=== PATIENT | male | born 1990 | race American Indian/Alaskan Native ===

== ENCOUNTER 2018-12-14 22:14 | Emergency (ER) | payer SELFPAY ==
--- NOTE | 2018-12-14 23:05 | Emergency Department Report ---
ED Seizure HPI - General Stated Complaint: SEIZURE Time Seen by Provider: 12/14/18 22:58 Source: patient, family Mode of arrival: Stretcher Limitations: No Limitations - History of Present Illness Initial Comments: Patient is a 28-year-old male that presents to emergency with seizure. Patient has a known seizure history. Patient is taking his Keppra however patient is mostly taken 750 mg by mouth twice a day but patient is taking 500 mg once a day due to not having a prescription for Keppra 750 mg. Patient states his last seizure was October 2018. Patient states his seizures were better when he was taking the correct dose of Keppra. Patient denies head trauma. Patient states he was laying on the couch when he went into a seizure. Patient did have a post ictal stage however patient is now answering questions appropriately. Patient was brought in by EMS. Report received from EMS. Patient denies chest pain. Patient denies blurry vision. Patient denies headache. Patient denies dizziness. Patient denies shortness of breath. MD Complaint: seizure -: Sudden Description of Episode: tonic-clonic movement -: second(s) Witnessed:: Yes Trauma: No Seizure History: known seizure disorder, history of non-compliance Place: home Possible Precipitating Event: medication Associated Symptoms: denies other symptoms. denies: chest pain, confusion, cough, diaphoresis, fever/chills, loss of appetite, malaise, rash, shortness of breath, syncope, weakness, tongue injury, shoulder dislocation - Related Data Previous Rx's Medication Instructions Recorded Last Taken Type levETIRAcetam [Keppra] 750 mg PO BID 30 Days #60 tablet 12/15/18 Unknown Rx Allergies Allergy/AdvReac Type Severity Reaction Status Date / Time No Known Allergies Allergy Unverified 12/14/18 23:03 ED Review of Systems ROS: Stated complaint: SEIZURE Other details as noted in HPI Constitutional: denies: chills, fever Eyes: denies: eye pain, eye discharge, vision change ENT: denies: ear pain, throat pain Respiratory: denies: cough, shortness of breath, wheezing Cardiovascular: denies: chest pain, palpitations Endocrine: no symptoms reported Gastrointestinal: denies: abdominal pain, nausea, diarrhea Genitourinary: denies: urgency, dysuria Musculoskeletal: denies: back pain, joint swelling, arthralgia Skin: denies: rash, lesions Neurological: denies: headache, weakness, paresthesias Psychiatric: denies: anxiety, depression Hematological/Lymphatic: denies: easy bleeding, easy bruising ED Past Medical Hx - Past Medical History Previous Medical History?: Yes Hx Seizures: Yes - Surgical History Past Surgical History?: No - Family History Family history: no significant - Social History Smoking Status: Never Smoker Substance Use Type: None - Medications Home Medications: Home Medications Medication Instructions Recorded Confirmed Last Taken Type levETIRAcetam [Keppra] 750 mg PO BID 30 Days #60 tablet 12/15/18 Unknown Rx ED Physical Exam - General General appearance: alert, in no apparent distress - Head Head exam: Present: atraumatic, normocephalic - Eye Eye exam: Present: normal appearance, PERRL Pupils: Present: normal accommodation - ENT ENT exam: Present: mucous membranes moist - Neck Neck exam: Present: normal inspection - Respiratory Respiratory exam: Present: normal lung sounds bilaterally. Absent: respiratory distress - Cardiovascular Cardiovascular Exam: Present: regular rate, normal rhythm. Absent: systolic murmur, diastolic murmur, rubs, gallop - GI/Abdominal GI/Abdominal exam: Present: soft, normal bowel sounds - Rectal Rectal exam: Present: deferred - Extremities Exam Extremities exam: Present: normal inspection - Back Exam Back exam: Present: normal inspection - Neurological Exam Neurological exam: Present: alert, oriented X3, CN II-XII intact, normal gait. Absent: motor sensory deficit - Psychiatric Psychiatric exam: Present: normal affect, normal mood - Skin Skin exam: Present: warm, dry, intact, normal color. Absent: rash ED Course Vital Signs 12/14/18 12/14/18 12/14/18 22:40 22:45 22:55 Temperature 97.4 F L Pulse Rate 70 88 Respiratory 18 20 Rate Blood Pressure 143/91 136/80 O2 Sat by Pulse 96 98 99 Oximetry 12/14/18 12/14/18 12/14/18 23:00 23:01 23:16 Temperature Pulse Rate 75 77 Respiratory 14 20 12 Rate Blood Pressure 143/91 215/124 O2 Sat by Pulse 99 99 99 Oximetry 12/14/18 12/14/18 12/15/18 23:30 23:46 00:00 Temperature Pulse Rate 72 71 71 Respiratory 15 21 18 Rate Blood Pressure 215/124 151/74 140/74 O2 Sat by Pulse 99 99 99 Oximetry - Reevaluation(s) Reevaluation #1: Discussed all results with patient. Patient will be given a prescription for Keppra 750 mg by mouth twice a day. pt Given discharge instructions. Patient voiced understanding of all discharge instructions. Patient is stable for discharge. Patient will be discharged home. Patient received Keppra bolus 12/15/18 00:08 ED Medical Decision Making - Lab Data Result diagrams: 12/14/18 23:31 12/14/18 23:31 - EKG Data -: EKG Interpreted by Me EKG shows normal: sinus rhythm, axis, intervals, QRS complexes, ST-T waves Rate: normal - Medical Decision Making Patient is a 28-year-old male that presents emergency with seizure like activity. Patient has a history of seizure. Patient not taking his p rescriptions as prescribed due to not having medications. Patient will be given a refill of his current dose of Keppra. Patient's labs unremarkable. Patient's EKG normal. Patient we discharged home. Critical care attestation.: If time is entered above; I have spent that time in minutes in the direct care of this critically ill patient, excluding procedure time. ED Disposition Clinical Impression: Seizure, Noncompliance Disposition: DC-01 TO HOME OR SELFCARE Is pt being admited?: No Does the pt Need Aspirin: No Condition: Stable Instructions: Epilepsy (ED), Recurrent Seizures Adult (ED) Additional Instructions: Follow-up with primary care in 2-3 days. Patient to follow up with neurologist in 2-3 days. Patient take Keppra as directed. Patient increase water. Patient to rest. Patient to avoid driving. Prescriptions: levETIRAcetam [Keppra] 750 mg PO BID 30 Days #60 tablet Referrals: NARA RAMOS [Primary Care Provider] - 2-3 Days Time of Disposition: 00:28
[2018-12-14] MEDS ORDERED: KEPPRA 1,000 MG/NS 0.75% 100ML 1,000 MG/100 ML BAG IV ONE (23:24)
[2018-12-14 23:38] LABS: Hematocrit 37.9 % (35.5-45.6); Hemoglobin 12.9 gm/dl (11.8-15.2); Mean Corpuscular HGB Conc 34 % (32-34); Mean Corpuscular Volume 86 fl (84-94); Platelet Count 258 K/mm3 (140-440); Red Blood Count 4.39 M/mm3 (3.65-5.03); Red Cell Distribution Width 14.8 % (13.2-15.2)
[2018-12-15] LABS: Alanine Aminotransferase 19 units/L (7-56); Albumin 3.8 g/dL (3.9-5); BUN/Creatinine Ratio 14; Blood Urea Nitrogen 11 mg/dL (9-20); Calcium 8.7 mg/dL (8.4-10.2); Hemolysis Index 5
[2018-12-15 00:14] VITALS: BP 140/74
== END 2018-12-15 00:49 | disposition home or self-care (01) ==
LOC: ED 22:14
DX: G40.909 Epilepsy, unspecified, not intractable, without status epilepticus (principal)
CPT/HCPCS: 36415; 80053; 85027; 93005; 93010; 96374; 99284; J1953

== ENCOUNTER 2019-01-04 21:21 | Emergency (ER) | payer SELFPAY ==
[2019-01-04] MEDS ORDERED: KEPPRA 1,000 MG/NS 0.75% 100ML 1,000 MG/100 ML BAG IV ONE (21:34)
--- NOTE | 2019-01-04 21:38 | Emergency Department Report ---
HPI - General Chief Complaint: Seizure Time Seen by Provider: 01/04/19 21:26 - HPI HPI: Room 2 The patient is a 28-year-old male presenting with chief complaint of seizure. Patient has a history of epilepsy but has been taking a prescription of Keppra t hat is over 1-year-old. Tonight the patient had a seizure and EMS was called. Per EMS the patient had a second seizure while with them was administered Ativan 2 mg IV prior to arrival. In the ED the patient is postictal but speaks. Patient complains of just feeling tired Location: [facility] Duration: [See above] Quality: [See above] Severity: Moderate Modifying factors: [see above] Context: [see above] Mode of transportation: [not driving] ED Past Medical Hx - Past Medical History Previous Medical History?: Yes Hx CVA: Yes (minimal left-sided weakness) Hx Seizures: Yes Additional medical history: TIA- 2013 - Surgical History Past Surgical History?: No - Family History Family history: no significant - Social History Smoking Status: Never Smoker Substance Use Type: None (denies illicit drug use) - Medications Home Medications: Home Medications Medication Instructions Recorded Confirmed Last Taken Type levETIRAcetam [Keppra] 750 mg PO BID #60 tablet 01/05/19 Unknown Rx ED Review of Systems ROS: Stated complaint: SEIZURE Other details as noted in HPI Constitutional: no symptoms reported Eyes: denies: eye pain ENT: denies: throat pain Respiratory: no symptoms reported Cardiovascular: denies: chest pain Endocrine: no symptoms reported Gastrointestinal: denies: abdominal pain Genitourinary: denies: dysuria Musculoskeletal: denies: back pain Neurological: other (seizure). denies: headache Physical Exam - Physical Exam Vital Signs: Vital Signs 01/04/19 01/04/19 21:26 21:31 Temperature 98.0 F Pulse Rate 89 89 Respiratory 17 16 Rate Blood Pressure 148/75 [Right] O2 Sat by Pulse 97 98 Oximetry Physical Exam: GENERAL: The patient is well-developed well-nourished male sleeping on stretcher not appear to be in acute distress. [] HEENT: Normocephalic. Atraumatic. Extraocular motions are intact. Patient has moist mucous membranes. NECK: Supple. No meningitic signs are noted. There is no adenopathy noted. CHEST/LUNGS: Clear to auscultation. There is no respiratory distress noted. HEART/CARDIOVASCULAR: Regular. There is no tachycardia. There is no gallop rub or murmur. ABDOMEN: Abdomen is soft, nontender. Patient has normal bowel sounds. There is no abdominal distention. SKIN: There is no rash. There is no edema. There is no diaphoresis. NEURO: The patient is sluggish but oriented. The patient is cooperative. The patient has no focal neurologic deficits. The patient has normal speech. Cranial nerves II through XII grossly intact, no drift MUSCULOSKELETAL: There is no evidence of acute injury. ED Course Vital Signs 01/04/19 01/04/19 21:26 21:31 Temperature 98.0 F Pulse Rate 89 89 Respiratory 17 16 Rate Blood Pressure 148/75 [Right] O2 Sat by Pulse 97 98 Oximetry - Reevaluation(s) Reevaluation #1: 01/04/19 22:32 Patient remains groggy. When patient is more awake will be able to discharge Reevaluation #2: 01/05/19 00:13 Patient awake now states he feels good and is ready to go home. ED Medical Decision Making - Lab Data Result diagrams: 01/04/19 21:37 01/04/19 21:37 Laboratory Tests 01/04/19 01/04/19 01/04/19 21:37 21:37 21:37 WBC 8.1 RBC 4.50 Hgb 13.1 Hct 38.6 MCV 86 MCH 29 MCHC 34 RDW 14.2 Plt Count 292 Lymph % (Auto) 20.4 [place] % (Auto) 7.2 Eos % (Auto) 1.0 Baso % (Auto) 0.9 Lymph # 1.7 [place] # 0.6 Eos # 0.1 Baso # 0.1 Seg Neutrophils % 70.5 H Seg Neutrophils # 5.7 Sodium 142 Potassium 3.9 Chloride 105.8 Carbon Dioxide 23 Anion Gap 17 BUN 9 Creatinine 1.0 Estimated GFR > 60 BUN/Creatinine Ratio 9 Glucose 87 Calcium 8.9 Magnesium 2.00 - Differential Diagnosis seizure Critical care attestation.: If time is entered above; I have spent that time in minutes in the direct care of this critically ill patient, excluding procedure time. ED Disposition Clinical Impression: Seizure Disposition: DC-01 TO HOME OR SELFCARE Is pt being admited?: No Does the pt Need Aspirin: No Condition: Stable Instructions: Epilepsy (ED) Additional Instructions: Return to the emergency department immediately should you develop worsening s ymptoms, fever, inability to tolerate food or liquid or any other concerns. Prescriptions: levETIRAcetam [Keppra] 750 mg PO BID #60 tablet Referrals: ZOHRA JEFF MD [Staff Physician] - 3-5 Days (Dr. Jeff is a neurologist. Please follow up with him for further evaluation) Time of Disposition: 00:15
[2019-01-04 21:54] LABS: Basophils # (Auto) 0.1 K/mm3 (0.0-0.1); Basophils % (Auto) 0.9 % (0.0-1.8); Eosinophils # (Auto) 0.1 K/mm3 (0.0-0.4); Hematocrit 38.6 % (35.5-45.6); Hemoglobin 13.1 gm/dl (11.8-15.2); Lymphocytes # (Auto) 1.7 K/mm3 (1.2-5.4); Lymphocytes % (Auto) 20.4 % (13.4-35.0); Mean Corpuscular HGB Conc 34 % (32-34); Mean Corpuscular Volume 86 fl (84-94); Monocytes # (Auto) 0.6 K/mm3 (0.0-0.8); Monocytes % (Auto) 7.2 % (0.0-7.3); Platelet Count 292 K/mm3 (140-440); Red Cell Distribution Width 14.2 % (13.2-15.2)
[2019-01-04 22:13] LABS: BUN/Creatinine Ratio 9; Blood Urea Nitrogen 9 mg/dL (9-20); Calcium 8.9 mg/dL (8.4-10.2); Hemolysis Index 8
[2019-01-05 00:13] VITALS: BP 133/73
== END 2019-01-05 00:34 | disposition home or self-care (01) ==
LOC: ED 21:21
DX: R56.9 Unspecified convulsions (principal); Z86.73 Personal history of transient ischemic attack (TIA), and cerebral infarction without residual deficits
CPT/HCPCS: 36415; 80048; 83735; 85025; 96365; 99284; J1953

== ENCOUNTER 2019-01-06 00:59 | Emergency (ER) | payer OTHER ==
[2019-01-06] MEDS ORDERED: ACTIDOSE-AQUA PO ONE (01:16)
[2019-01-06 01:48] LABS: Basophils # (Auto) 0.1 K/mm3 (0.0-0.1); Basophils % (Auto) 0.8 % (0.0-1.8); Eosinophils # (Auto) 0.1 K/mm3 (0.0-0.4); Eosinophils % (Auto) 1.7 % (0.0-4.3); Hematocrit 38.6 % (35.5-45.6); Hemoglobin 13.3 gm/dl (11.8-15.2); Lymphocytes # (Auto) 1.8 K/mm3 (1.2-5.4); Lymphocytes % (Auto) 21.6 % (13.4-35.0); Mean Corpuscular HGB Conc 34 % (32-34); Mean Corpuscular Hemoglobin 29 pg (28-32); Mean Corpuscular Volume 86 fl (84-94); Monocytes # (Auto) 0.5 K/mm3 (0.0-0.8); Monocytes % (Auto) 5.9 % (0.0-7.3); Platelet Count 272 K/mm3 (140-440); Red Blood Count 4.52 M/mm3 (3.65-5.03); Red Cell Distribution Width 14.2 % (13.2-15.2)
[2019-01-06 02:07] LABS: Alanine Aminotransferase 21 units/L (7-56); Albumin 3.9 g/dL (3.9-5); BUN/Creatinine Ratio 10; Blood Urea Nitrogen 8 mg/dL (9-20); Calcium 8.7 mg/dL (8.4-10.2); Hemolysis Index 3
--- NOTE | 2019-01-06 02:53 | Emergency Department Report ---
ED Psych HPI - General Chief Complaint: Overdose Stated Complaint: SUICIDAL IDEATIONS Time Seen by Provider: 01/06/19 01:14 Source: EMS Mode of arrival: Stretcher - History of Present Illness Initial Comments: Patient is a 28-year-old male past medical history of seizures who attempted suicide tonight. Patient states he's been feeling depressed and he was actually playing with his gun today and was having thoughts of shooting himself. Patient decided not to do this but did take a handful of his Keppra followed by additional handful. Patient states that he thinks he took approximately 20 pills approximately an hour and a half before his arrival here. Patient states he has mild sleepiness but denies any nausea vomiting headache seizures. MD Complaint: suicidal ideation, feels depressed - Related Data Previous Rx's Medication Instructions Recorded Last Taken Type levETIRAcetam [Keppra] 750 mg PO BID #60 tablet 01/05/19 Unknown Rx Allergies Allergy/AdvReac Type Severity Reaction Status Date / Time No Known Allergies Allergy Unverified 12/14/18 23:03 ED Review of Systems ROS: Stated complaint: SUICIDAL IDEATIONS Other details as noted in HPI Comment: All other systems reviewed and negative ED Past Medical Hx - Past Medical History Hx CVA: Yes (minimal left-sided weakness 2012) Hx Seizures: Yes Additional medical history: TIA- 2012 - Social History Smoking Status: Unknown if ever smoked - Medications Home Medications: Home Medications Medication Instructions Recorded Confirmed Last Taken Type levETIRAcetam [Keppra] 750 mg PO BID #60 tablet 01/05/19 01/07/19 Unknown Rx ED Physical Exam - General Limitations: No Limitations General appearance: alert, in no apparent distress - Head Head exam: Present: atraumatic, normocephalic - Eye Eye exam: Present: normal appearance - ENT ENT exam: Present: mucous membranes moist - Neck Neck exam: Present: normal inspection - Respiratory Respiratory exam: Present: normal lung sounds bilaterally. Absent: respiratory distress, wheezes, rales, rhonchi - Cardiovascular Cardiovascular Exam: Present: regular rate, normal rhythm. Absent: systolic murmur, diastolic murmur, rubs, gallop - GI/Abdominal GI/Abdominal exam: Present: soft, normal bowel sounds. Absent: distended, tenderness, guarding, rebound, rigid - Rectal Rectal exam: Present: deferred - Extremities Exam Extremities exam: Present: normal inspection - Back Exam Back exam: Present: normal inspection - Neurological Exam Neurological exam: Present: alert, oriented X3 - Psychiatric Psychiatric exam: Present: normal affect, normal mood - Skin Skin exam: Present: warm, dry, intact, normal color. Absent: rash ED Course Vital Signs 01/06/19 01/06/19 01/06/19 01:04 01:27 02:15 Temperature 97.3 F L Pulse Rate 78 75 Respiratory 18 20 18 Rate Blood Pressure 160/112 134/90 [Left] O2 Sat by Pulse 97 98 100 Oximetry 01/06/19 01/06/19 01/06/19 03:01 08:00 14:56 Temperature 97.7 F 97.4 F L 97.3 F L Pulse Rate 82 79 72 Respiratory 18 18 18 Rate Blood Pressure 112/72 112/72 107/65 [Left] O2 Sat by Pulse 99 100 99 Oximetry 01/06/19 01/06/19 01/07/19 19:30 20:00 02:00 Temperature 97.9 F 97.6 F Pulse Rate 69 69 Respiratory 18 18 18 Rate Blood Pressure 133/88 145/95 [Left] O2 Sat by Pulse 99 99 100 Oximetry 01/07/19 01/07/19 01/07/19 08:00 14:00 20:00 Temperature 98.9 F 97.8 F 98 F Pulse Rate 66 99 H 72 Respiratory 18 13 18 Rate Blood Pressure 105/60 142/88 124/67 [Left] O2 Sat by Pulse 100 99 99 Oximetry 01/08/19 01/08/19 01/08/19 02:05 02:30 03:30 Temperature 97.7 F Pulse Rate 84 Respiratory 20 18 18 Rate Blood Pressure 141/84 [Left] O2 Sat by Pulse 98 Oximetry 01/08/19 09:12 Temperature 97.9 F Pulse Rate 63 Respiratory 18 Rate Blood Pressure 133/77 [Left] O2 Sat by Pulse 100 Oximetry - Reevaluation(s) Reevaluation #1: 01/08/19 12:03 Patient was seen by psychiatry and has had his temperature to be rescinded. Patient is calm and cooperative. Patient is remorseful for the suicide attempt several days ago. Patient does have collateral help at home. Patient's cont racted for safety and can be discharged home at this time. ED Medical Decision Making - Lab Data Result diagrams: 01/06/19 01:21 01/06/19 01:21 Labs 01/06/19 01/06/19 01/06/19 01:21 01:21 01:21 WBC 8.4 RBC 4.52 Hgb 13.3 Hct 38.6 MCV 86 MCH 29 MCHC 34 RDW 14.2 Plt Count 272 Lymph % (Auto) 21.6 [place] % (Auto) 5.9 Eos % (Auto) 1.7 Baso % (Auto) 0.8 Lymph # 1.8 [place] # 0.5 Eos # 0.1 Baso # 0.1 Seg Neutrophils % 70.0 Seg Neutrophils # 5.9 Sodium 137 Potassium 3.6 Chloride 100.6 Carbon Dioxide 25 Anion Gap 15 BUN 8 L Creatinine 0.8 Estimated GFR > 60 BUN/Creatinine Ratio 10 Glucose 102 H Calcium 8.7 Total Bilirubin 0.30 AST 15 ALT 21 Alkaline Phosphatase 77 Total Protein 7.1 Albumin 3.9 Albumin/Globulin Ratio 1.2 Salicylates < 0.3 L Acetaminophen Plasma/Serum Alcohol 01/06/19 01/06/19 01:21 01:21 WBC RBC Hgb Hct MCV MCH MCHC RDW Plt Count Lymph % (Auto) [place] % (Auto) Eos % (Auto) Baso % (Auto) Lymph # [place] # Eos # Baso # Seg Neutrophils % Seg Neutrophils # Sodium Potassium Chloride Carbon Dioxide Anion Gap BUN Creatinine Estimated GFR BUN/Creatinine Ratio Glucose Calcium Total Bilirubin AST ALT Alkaline Phosphatase Total Protein Albumin Albumin/Globulin Ratio Salicylates Acetaminophen < 5.0 L Plasma/Serum Alcohol < 0.01 - Medical Decision Making [facility] contacted and they state that the patient should be monitored for approximately 6 hours for respiratory distress. Patient will be cleared after that. Critical care attestation.: If time is entered above; I have spent that time in minutes in the direct care of this critically ill patient, excluding procedure time. ED Disposition Clinical Impression: Suicidal ideation Overdose Qualifiers: Encounter type: initial encounter Injury intent: intentional self-harm Qualified Code(s): T50.902A - Poisoning by unspecified drugs, medicaments and biological substances, intentional self-harm, initial encounter Disposition: DC-01 TO HOME OR SELFCARE Is pt being admited?: No Does the pt Need Aspirin: No Condition: Stable Referrals: OTTO BENEDICT MD [Primary Care Provider] - 3-5 Days Forms: Accompanied Note Time of Disposition: 12:05
[2019-01-06 04:20] LABS: Bacteria,Urine 1+ /HPF (Negative); Bilirubin,Urine NEG (Negative); Blood,Urine NEG (Negative); Color,Urine Straw (Yellow); Mucus,Urine FEW /HPF; Protein,Urine <15 mg/dL mg/dL (Negative); RBC,Urine < 1.0 /HPF (0.0-6.0); Urobilinogen,Urine < 2.0 mg/dL (<2.0); WBC,Urine < 1.0 /HPF (0.0-6.0)
[2019-01-06 04:45] LABS: Amphetamine Screen,Urine PRESUMPTIVE NEGATIVE; Benzodiazepines Screen,Urine PRESUMPTIVE NEGATIVE; Cannabinoid Screen,Urine PRESUMPTIVE NEGATIVE; Cocaine Screen,Urine PRESUMPTIVE NEGATIVE; Methadone Screen,Urine PRESUMPTIVE NEGATIVE; Opiate Screen,Urine PRESUMPTIVE NEGATIVE
--- NOTE | 2019-01-06 14:14 | Consultation ---
History of Present Illness - Reason for Consult Consult date: 01/06/19 Reason for consult: Mental Health Evaluationq Requesting physician: RODOLFO WELSH - Chief Complaint Chief complaint: "I wanted to " - History of Present Psychiatric Illness 28-year-old male past medical history of seizures who presented to ER for a suicide attempt. Today the patient is calm and cooperative during the ass essment. He stated that he had a argument with his girlfriend. He stated that he felt sad and decided to overdose on Keppra to kill himself per the patient. He denies any previous suicide attempts when asked. He stated that life have been hard most recently. He denies SI/HI's and AVH's. He denies erratic sleep and a poor appetite. He denies recreational drug use and alcohol consumption (etoh). Medications and Allergies Allergies Allergy/AdvReac Type Severity Reaction Status Date / Time No Known Allergies Allergy Unverified 12/14/18 23:03 Home Medications Medication Instructions Recorded Confirmed Last Taken Type levETIRAcetam [Keppra] 750 mg PO BID #60 tablet 01/05/19 Unknown Rx Past psychiatric history - Past Medical History Past Medical History: seizures Past Surgical History: No surgical history - past Psychiatric treatment and history psychiatric treatment history: Denies a psy hs. fam psy of mood do's. - Social History Social history: other (Reside with his girlfriend) Mental Status Exam - Vital signs Last Vital Signs Temp 97.4 F L 01/06/19 08:00 Pulse 79 01/06/19 08:00 Resp 18 01/06/19 08:00 BP 112/72 01/06/19 08:00 Pulse Ox 100 01/06/19 08:00 - Exam Narrative exam: MSE: Appearance: calm, cooperative Behavior: regular eye contact Speech: regular rate and tone Mood: "okay" Affect: congruent to mood Thought Process: linear Thought Content: denies SI/HI's and AVH's Motor Activity: sitting up in bed Cognition: A/O x3 Insight: fair Judgment: variable Results Result Diagrams: 01/06/19 01:21 01/06/19 01:21 Abnormal lab results 01/06/19 01/06/19 01/06/19 Range/Units 01:21 01:21 01:21 BUN 8 L (9-20) mg/dL Glucose 102 H (75-100) mg/dL Salicylates < 0.3 L (2.8-20.0) mg/dL Acetaminophen < 5.0 L (10.0-30.0) ug/mL All other labs normal. Assessment and Plan Assessment and plan: Impression: MDD, Single Episode. Today the patient is calm and cooperative during the assessment. DDx: R/O Bipolar DO Recommendation/Plan: Continue 1013. Discuss risk/benefits of antidepressants, the patient prefer talk therapy at this time. Dspo: The patient was referred to inpatient psy services. Staffed with Dr Azucena Abad.
--- NOTE | 2019-01-07 14:25 | Progress Note ---
Subjective - Reason for Consult Consult date: 01/07/19 Reason for consult: Psychiatric Follow Evaluation - Chief Complaint Chief complaint: "I feel good" Patient is a 28-year-old male who presented to ER for a suicide attempt. Patient has a past medical history of seizures. Today the patient is calm and cooperative during the assessment. He stated that he had a argument with his girlfriend which triggered his suicide attempt. He verbalizes " I had a moment. I recently transitioned here from [place] and it has been stressful." He reports appropriate sleep and appetite. He denies SI/HI's, A/VH's, and delusions. Mental Status Exam - Vital signs Last Vital Signs Temp 98.9 F 01/07/19 08:00 Pulse 66 01/07/19 08:00 Resp 18 01/07/19 08:00 BP 105/60 01/07/19 08:00 Pulse Ox 100 01/07/19 08:00 - Exam Narrative exam: Mental Status Exam Appearance: calm, cooperative Behavior: regular eye contact Speech: regular rate and tone Mood: "I'm doing good" Affect: congruent to mood Thought Process: linear; organized Thought Content: denies SI/HI's, AVH's, and delusions Motor Activity: ambulatory Cognition: A/O x3 Insight: fair Judgment: variable Assessment and Plan Impression: MDD, Single Episode. Today the patient is calm and cooperative d uring the assessment. He denies SI/HI's, A/VH's, and delusions. DDx: R/O Bipolar DO Recommendation/Plan: 1. Continue 1013. Will reassess in 24 hours. 2. Discuss risk/benefits of antidepressants, the patient prefer talk therapy at this time. Disposition: The patient was referred to inpatient psychiatric services. Staffed with Dr. Juan Carlos Abad.
[2019-01-08] MEDS ORDERED: TYLENOL PO ONE (02:27)
[2019-01-08] MEDS ORDERED: TYLENOL ONE (02:31)
[2019-01-08 09:14] VITALS: BP 133/77
--- NOTE | 2019-01-08 10:21 | Progress Note ---
Subjective - Reason for Consult Consult date: 01/08/19 Reason for consult: Psychiatry Follow-up - Chief Complaint Chief complaint: "I've done a lot of thinking" Patient is a 28-year-old male who presented to ER for a suicide attempt. Patient has a past medical history of seizures. Today the patient is calm and cooperative during the assessment. Per collateral information from his girlfriend Cherelle Shelton at [phone], she stated that the patient was stressed at the time he ingested the Keppra pills. She stated that the patient do not have a hx of suicidal behavior. She stated that the patient can return home once discharged. Also, she stated that she's the patient's support system. The patient stated that he "cherish" his life and is "remorseful" reference his actions. He stated that he is committed to seeking therapy when discharged. He denies SI/HI's and AVH's. Mental Status Exam - Vital signs Last Vital Signs Temp 97.9 F 01/08/19 09:12 Pulse 63 01/08/19 09:12 Resp 18 01/08/19 09:12 BP 133/77 01/08/19 09:12 Pulse Ox 100 01/08/19 09:12 - Exam Narrative exam: MSE: Appearance: calm, cooperative Behavior: regular eye contact Speech: regular rate and tone Mood: "okay" Affect: congruent to mood Thought Process: linear Thought Content: denies SI/HI's and AVH's Motor Activity: sitting up in bed Cognition: A/O x3 Insight: appropriate Judgment: appropriate Assessment and Plan Impression: MDD, Single Episode. Today the patient is calm and cooperative during the assessment. The patient is no threat to self. DDx: R/O Bipolar DO Suicide Risk Assessment I. This screening and assessment is based on information collected from the following sources: II. SUICIDE RISK SCREENING (within last 30 days): A.) Suicidal thoughts/behaviors: Yes SUICIDE RISK ASSESSMENT III. FACTORS THAT INCREASE RISK: A.) Demographic and Substance Use Factors: No B.) Current/Recent Factors (within past 3 months): Psychosocial/Environmental Factors: Relationship Issues Physical Illness: None Cognitive/Psychological Factors: None C.) Historical Factors: None D.) Diagnostic/Symptom/Treatment Factors: None E.) Acute Risk Factor Severity (DESC; MILD/MOD/SEVERE): Mild Other factors for this individual that increase risk: None IV. FACTORS THAT DECREASE RISK: Resilience/Protective Factors: Patient want to decrease his stress reference his relationship Other factors for this individual that decrease risk: Patient denies a desire to harm self V. Clinician's Formulation of Risk and Determination of level of Care: This is a 28 y.o. AA male who ingested several Keppra pills and was playing with a gun with thoughts of shooting himself. He stated that his actions were unsafe prior to his arrival to the hospital. Since being hospitalized the patient has consistently denied the desire to harm himself. Additionally, he has become i nsightful about how to better address her current issues. The patient is not impaired by substance. He is able to take care of her ADLs and is not at imminent risk of harm to self or others. Consequently, it is the opinion of the treatment team that the patient is at low risk of suicide and does not meet criteria to continue an involuntary psychiatric hold. Estimation of Imminent Risk: Low due to the above explanation. Determination of Level of Care based on Suicide Risk: Outpatient follow-up. Narrative description of clinical reasoning. Given the fact that the patient is willing to engage in outpatient psy services (therapy) and has a supportive network (Teresa Shelton), it is reasonable to expect that the patient will seek services. He is regretful of the decision take the Keppra pills. At this current time, he is not impulsive and does not have any risk factors to increase the likelihood of his impulsive behavior. Therefore, it is reasonable to expect that the patient will engage in outpatient/rehab services which will reduce further unsafe behaviors. . Plan and Interventions based on Suicide Risk: This patient will likely be stepped down to an outpatient mental health center in the community upon discharge and follow-up within 7 days of his discharge from the hospital. VII. Discharge/After Hours Support Plan: Patient can return back to the ER, call 911 or crisis line if symptoms of depression, anxiety, suicidality return. Recommendation/Plan: Rescind 1013. Discuss risk/benefits of antidepressants, the patient prefer talk therapy at this time. Safety Contract completed with the patient. Generalized coping skills discussed with the patient. Dspo: The patient can follow up with [facility] for outpatient psy services (therapy). Staffed with Dr Desir.
== END 2019-01-08 12:42 | disposition home or self-care (01) ==
LOC: ED 00:59 → EEVIPCON 00:59 → ED 01-08 12:42
DX: T42.6X2A Poisoning by other antiepileptic and sedative-hypnotic drugs, intentional self-harm, initial encounter (principal); F32.9 Major depressive disorder, single episode, unspecified; R56.9 Unspecified convulsions; Z86.73 Personal history of transient ischemic attack (TIA), and cerebral infarction without residual deficits; Y92.89 Other specified places as the place of occurrence of the external cause
CPT/HCPCS: 36415; 80053; 80307; 81001; 85025; 93005; 93010; 99284; G0480; 80320